=== PATIENT | female | born 1965 | race Caucasian/White ===

== ENCOUNTER 2019-01-18 09:01 | Outpatient (CLI) | payer OTHER ==
[2019-01-18 12:25] LABS: #Basophils 0.1 thou/uL (0.0-0.2); #Eosinphils 0.1 thou/uL (0.0-0.7); #Lymphocytes 1.6 thou/uL (1.20-3.40); #Monocytes 0.8 thou/uL (0.11-0.59); #Neutrophils 3.7 thou/uL (1.40-6.50); %Basophils 1.3 % (0.0-1.0); %Lymphocytes 25.1 % (21.0-51.0); %Monocytes 12.6 % (0.0-10.0); %Neutrophils 59.1 % (42.0-75.0); Hemoglobin 8.3 g/dL (12.0-16.0); Hypochromia MODERATE=16-30 cells (100X) (0-5/hpf); MDiff Complete? YES; Mean Corpuscular Hemoglobin 20.8 pg (27.0-31.0); Mean Corpuscular Volume 71.6 fL (78.0-98.0); Mean Platelet Volume 8.1 fL (7.4-10.4); Microcytosis MODERATE=15-30 cells (100X) (0-5/hpf); Ovalocytes SLIGHT = 2-5 cells (100X) (0-1/hpf); Platelet Count 372 thou/uL (130-400); Platelet Morphology Comment Appears Adequate; Polychromasia SLIGHT = 2-3 cells (100X) (0-2/hpf); RBC Distribution Width 15.7 % (11.5-14.5); Red Blood Cell (RBC) Count 3.97 mill/uL (4.20-5.40); Reflex for Review?? NO; White Blood Cell (WBC) Count 6.3 thou/uL (4.8-10.8)
[2019-01-18 12:27] LABS: ALT (SGPT) 23 U/L (8-55); AST (SGOT) 17 U/L (5-34); Albumin 4.1 g/dL (3.5-5.0); Alkaline Phosphatase 68 U/L (40-150); Anion Gap 12 mmol/L (10-20); BUN (Urea Nitrogen) 8 mg/dL (9.8-20.1); Bilirubin, Total 0.3 mg/dL (0.2-1.2); Calc. Creatinine Clearance 0 mL/min (70-130); Calcium 8.7 mg/dL (7.8-10.44); Carbon Dioxide 23 mmol/L (22-29); Chloride 105 mmol/L (98-107); Estimated GFR-MDRD 69; Globulin 2.7 g/dL (2.4-3.5); Glucose 73 mg/dL (70-105); Potassium 4.1 mmol/L (3.5-5.1); Protein, Total 6.8 g/dL (6.0-8.3)
[2019-01-18 12:48] LABS: Sodium 136 mmol/L (136-145)
== END 2019-01-18 09:02 | disposition home or self-care (01) ==
LOC: LABBT 09:01
PROVIDERS: ATTEND Surgery
DX: Z01.812 Encounter for preprocedural laboratory examination (principal); K64.8 Other hemorrhoids; K64.4 Residual hemorrhoidal skin tags
CPT/HCPCS: 80053; 85025

== ENCOUNTER 2019-01-25 05:37 | Day surgery (SDC) | payer OTHER ==
[2019-01-18 10:44] VITALS: BMI 29.7
[2019-01-25] MEDS ORDERED: cefOXitin 2 GM VIAL ONE (06:08)
[2019-01-25] MEDS ORDERED: Sodium Chloride 0.9% 100 ML ONE (06:11)
[2019-01-25] MEDS ORDERED: Midazolam HCl 2 mg/2 ml Vial ONE ×2 (06:48→08:17)
[2019-01-25] MEDS ORDERED: Lidocaine 2% Jelly 5 ML TUBE ONE (06:48)
[2019-01-25] MEDS ORDERED: Fentanyl 100 MCG/2 ML VIAL ONE ×2 (06:48)
[2019-01-25] MEDS ORDERED: Bacitracin Zinc Ointment 30 gm TUBE ONE (06:51)
[2019-01-25] MEDS ORDERED: Bupivacaine/Epinephrine 0.25% 30 ML VIAL ONE (06:51)
[2019-01-25] MEDS ORDERED: Ondansetron PF 4 MG/2 ML Vial ONE (11:29)
[2019-01-25] MEDS ORDERED: Rocuronium Bromide 10 MG/ML (10ML VIAL) ONE (11:29)
[2019-01-25] MEDS ORDERED: Dexamethasone 20 MG/5 ML VIAL ONE (11:29)
[2019-01-25] MEDS ORDERED: PHENYLEPHRINE-NS 100 MCG/ML 10 ML SYRINGE ONE (11:29)
[2019-01-25] MEDS ORDERED: PROPOFOL 200 MG/20 ML VIAL ONE (11:29)
[2019-01-25] MEDS ORDERED: Glycopyrrolate 0.2 MG/ML 5 ML SYRINGE ONE (11:29)
[2019-01-25] MEDS ORDERED: Lidocaine 1% PF 5 ML VIAL ONE (11:29)
--- NOTE | 2019-01-25 14:25 | HP ---
CHIEF COMPLAINT: History of thrombosed hemorrhoids and prolapsing hemorrhoids. HISTORY OF PRESENT ILLNESS: The patient is a 53-year-old female. She had a thrombosed external hemorrhoid about 3 months ago. She has persistent skin tags causing trouble with hygiene. Last colonoscopy 5 years ago. She is not bleeding currently. PAST MEDICAL HISTORY: Hypothyroidism, vitamin D deficiency, seasonal allergies. MEDICATIONS: Vitamin D, vitamin B12, phentermine, Synthroid. FAMILY HISTORY: Diabetes. SOCIAL HISTORY: She is . No tobacco or alcohol. ALLERGIES: NO KNOWN DRUG ALLERGIES. PHYSICAL EXAMINATION: VITAL SIGNS: Height 64, weight 173, body mass index 29.8. GENERAL: She is a well-developed, well-nourished female, in no apparent distress. HEENT: Unremarkable. LUNGS: Clear. HEART: Regular rate and rhythm. ABDOMEN: Soft, nontender. Good bowel sounds. EXTREMITIES: Good pulses. No pedal edema. RECTAL: There is a 3 cm long skin tag anterior, moderate, dilated hemorrhoids. ASSESSMENT: Prolapsing hemorrhoids with skin tag. PLAN: PPH/stapled hemorrhoidectomy and excision of skin tag. CONSENT: I have discussed planned procedure as well as risk of bleeding, infection, injury to sphincter mechanism with incontinence. She understands and gives informed consent. Job ID: [id number]
--- NOTE | 2019-01-25 14:41 | OP ---
DATE OF PROCEDURE: 01/25/2019 PREOPERATIVE DIAGNOSIS: Long irritating anal skin tag, grade 3 prolapsing hemorrhoids. PROCEDURES PERFORMED: Excision of anal tag, PPH stapled hemorrhoidectomy. INDICATIONS: A 53-year-old female. She has had a previous thrombosed hemorrhoid, developed this very unusual 5 cm long skin tag on the anterior aspect of her anus, making it difficult to perform hygiene. Also had quite a bit of tags around the area that were soft. Colonoscopy otherwise unremarkable. FINDINGS: A long skin tag grade 3 hemorrhoids. DESCRIPTION OF PROCEDURE: After informed consent was obtained, the patient had undergone a mechanical bowel prep at home. She was taken to the operating room, where she underwent general endotracheal anesthesia. She was placed in the prone bridger-knife position. Buttock cheeks were spread apart with tape. A four quadrant anal block was performed utilizing 0.5% Marcaine. Then, the initial anal retractor was inserted and sutured in place with interrupted 0 silk suture. The suture guide was inserted and a pursestring of 2-0 prolene was placed circumferentially in the rectal mucosa. The stapler was inserted and the sutures were brought through the channels utilizing the fly hook, tied as an air knot, held tight around the shaft of the stapler as it was closed. The stapler was then fired and held for 30 seconds, released for 30 seconds and then removed. The specimen was inspected. There was no muscle fiber, sent to Pathology for further analysis. The anal tag was excised utilizing electrocautery. Hemostasis was assured. Gelfoam inserted within the anal canal. Sterile bandage applied. The patient tolerated the procedure well, transferred to Recovery in good condition. Sponge and needle count verified correct x2. Job ID: [id number]
== END 2019-01-25 11:40 | disposition home or self-care (01) ==
LOC: SDC 05:37
PROVIDERS: ATTEND Surgery
PROC: 06BY0ZC Excision of Hemorrhoidal Plexus, Open Approach (ICD-10-PCS; principal; 2019-01-25)
DX: K64.2 Third degree hemorrhoids (principal); K64.4 Residual hemorrhoidal skin tags; E03.9 Hypothyroidism, unspecified; E55.9 Vitamin D deficiency, unspecified; Z79.899 Other long term (current) drug therapy
CPT/HCPCS: 88304; J0694; J1100; J2001; J2250; J2405; J2704; J3010; J3490

== ENCOUNTER 2020-02-02 12:03 | Outpatient (CLI) | payer BC | END 2020-02-02 12:04 | disposition home or self-care (01) | LOC: ULT 12:03 | PROVIDERS: ATTEND Family Medicine | DX: R01.1 Cardiac murmur, unspecified (principal); I08.1 Rheumatic disorders of both mitral and tricuspid valves | CPT/HCPCS: 93306 ==